=== PATIENT | female | born 1980 | race Caucasian/White ===

== ENCOUNTER 2021-07-15 15:53 | Inpatient (IN) | payer MEDICAID, OTHER ==
[~2021-07-15] VITALS: Ht 165.1 cm; Wt 78.0 kg
[2021-07-15] MEDS ORDERED: TRAZ-252 PO (16:19)
[2021-07-15] MEDS ORDERED: POLY510P31 PO (16:22)
[2021-07-15] MEDS ORDERED: HYDR-4527 PO (16:22)
[2021-07-15 20:03] LABS: BASOPHILS % (AUTO) 0.6 % (0.0-2.0); EOSINOPHILS % (AUTO) 1.4 % (1.0-6.0); HEMATOCRIT 42.3 % (41-53); HEMOGLOBIN 14.2 g/dL (13.5-17.5); LYMPHOCYTES # (AUTO) 2.2 K/uL (1.0-4.8); LYMPHOCYTES % (AUTO) 29.1 % (22.0-44.0); MEAN CORPUSCULAR HEMOGLOBIN 29.7 pg (26.0-34.0); MEAN CORPUSCULAR HGB CONC 33.6 G/dL (31.0-37.0); MEAN CORPUSCULAR VOLUME 88 fL (80-100); MONOCYTES # (AUTO) 0.5 K/uL (0.1-1.0); MONOCYTES % (AUTO) 6.7 % (2.0-9.0); NEUTROPHILS # (AUTO) 4.7 K/uL (1.8-7.7); NEUTROPHILS % (AUTO) 62.2 % (40.0-70.0); PLATELET COUNT (AUTO) 214 K/uL (150-450); RED BLOOD CELL COUNT(AUTO) 4.79 MIL/uL (4.50-5.90); RED CELL DISTRIBUTION WIDTH 13.2 % (11.5-14.5)
[2021-07-15 20:17] LABS: ANION GAP 9 mmol/L (8-16); CARBON DIOXIDE 27 mmol/L (22-29); CHLORIDE 103 mmol/L (98-107); CREATININE 0.59 mg/dL (0.60-1.30); GLUCOSE,RANDOM 87 mg/dL (70-110); POTASSIUM 3.5 mmol/L (3.5-5.1); SODIUM SERUM 139 mmol/L (136-145); UREA NITROGEN, BLOOD 13 mg/dL (7-18)
[2021-07-15 20:20] LABS: GLOMERULAR FILTR. RATE CALC > 60 mL/min (>60)
[2021-07-15 20:24] LABS: ALANINE AMINOTRANSFERASE 26 U/L (12-78); ALBUMIN 3.8 g/dL (3.4-5.0); ALKALINE PHOSPHATASE 73 U/L (46-116); ASPARTATE AMINOTRANSFERASE 17 U/L (15-37); BILIRUBIN,TOTAL 0.5 mg/dL (0.1-1.0); TOTAL PROTEIN, SERUM 7.6 g/dL (6.4-8.2)
[2021-07-15] MEDS ORDERED: LORazepam 2 MG TABLET PO PRN (20:30)
[2021-07-15] MEDS ORDERED: ZOLPIDEM TARTRATE 10 MG TABLET PO PRN (20:30)
[2021-07-15] MEDS ORDERED: OLANZapine 5 MG RAPDIS TABLET PO PRN (20:30)
[2021-07-15 20:58] LABS: HCG,QUANTITATIVE < 1 mIU/mL (0-6)
[2021-07-15] MEDS ORDERED: LORATADINE 10 MG TABLET PO ONE (23:45)
[2021-07-16 00:38] LABS: COVID AG,FIA SOURCE NASAL SWAB
[2021-07-16 09:05] LABS: APPEARANCE,URINE CLEAR (CLEAR); BILIRUBIN,URINE NEGATIVE (NEGATIVE); GLUCOSE, URINE (UA) NEGATIVE (NEGATIVE); LEUKOCYTE ESTERASE ,URINE NEGATIVE (NEGATIVE); NITRATE,URINE NEGATIVE (NEGATIVE); OCCULT BLOOD,URINE NEGATIVE (NEGATIVE); PH,URINE 6.5 (5.0-8.0); PROTEIN,URINE NEGATIVE (NEGATIVE); SPECIFIC GRAVITIY, URINE 1.009 (1.003-1.030); UROBILINOGEN,URINE <=1.0 mg/dL (<=1.0)
[2021-07-16 09:11] LABS: AMPHET/METH SCREEN,URINE NEGATIVE (NEGATIVE); BARBITURATE SCREEN, URINE NEGATIVE (NEGATIVE); BENZODIAZEPINES SCREEN,URINE NEGATIVE (NEGATIVE); CANNABINOID SCREEN,URINE NEGATIVE (NEGATIVE); COCAINE SCREEN,URINE NEGATIVE (NEGATIVE); METHADONE SCREEN, URINE NEGATIVE (NEGATIVE); OPIATE SCREEN,URINE NEGATIVE (NEGATIVE)
[2021-07-16 09:12] LABS: PHENCYCLIDINE SCREEN,URINE NEGATIVE (NEGATIVE)
[2021-07-16 11:31] VITALS: BP 131/91
[2021-07-16] MEDS ORDERED: GuaiFENesin/D-METHORPHAN [SUGAR-FREE] 200-20MG/10 ML SYRUP UDCUP PO PRN (14:15)
[2021-07-16] MEDS ORDERED: MAGNESIUM HYDROXIDE SUSPENSION 30 ML UDCUP PO PRN (14:15)
[2021-07-16] MEDS ORDERED: HydrOXYzine PAMOATE 50 MG CAPSULE PO PRN (14:15)
[2021-07-16] MEDS ORDERED: TUBERCULIN, PURIFIED PROTEIN DERIVATIVE 5 TU/0.1 ML SYRINGE ID ONE (14:15)
[2021-07-16] MEDS ORDERED: LOPERAMIDE HCL 2 MG CAPSULE PO PRN (14:15)
[2021-07-16] MEDS ORDERED: MAG HYDROX/AL HYDROX/SIMETH ES 30 ML SUSPENSION UDCUP PO PRN (14:15)
[2021-07-16] MEDS ORDERED: ACETAMINOPHEN 325 MG TABLET PO PRN (14:15)
[2021-07-16] MEDS ORDERED: HydrOXYzine PAMOATE 25 MG CAPSULE PO PRN (14:15)
[2021-07-16] MEDS ORDERED: PROMETHAZINE HCL 25 MG TABLET PO PRN (14:15)
[2021-07-16] MEDS ORDERED: ZOLPIDEM TARTRATE 5 MG TABLET PO PRN (14:30)
[2021-07-16 16:13] VITALS: BP 113/77
[2021-07-16] MEDS: THIAMINE 100 MG TABLET PO SCH (16:51)
[2021-07-16] MEDS ORDERED: AMITRIPTYLINE HCL 10 MG TABLET PO SCH (21:00)
[2021-07-16] MEDS ORDERED: MELATONIN 5 MG TABLET PO SCH (21:00)
[2021-07-16] MEDS ORDERED: TraZODone HCL 50 MG TABLET PO SCH (21:00)
[2021-07-17 00:37] VITALS: BP 110/71
[2021-07-17 07:58] LABS: CHOL/HDL RATIO 3.3 (3.9-5.7); FREE T4 (FREE THYROXINE) 0.93 ng/dL (0.76-1.46); THYROID STIMULATING HORMONE 1.06 uIU/mL (0.36-3.74)
[2021-07-17 08:19] VITALS: BP 123/79
[2021-07-17] MEDS: THIAMINE 100 MG TABLET PO SCH ×2 (08:23→16:03)
[2021-07-17 08:30] LABS: HEMOGLOBIN A1C 5.2 % (3.8-5.6)
[2021-07-17] MEDS ORDERED: FOLIC ACID 1 MG TABLET PO SCH (09:00)
[2021-07-17] MEDS ORDERED: FAMOTIDINE 20 MG TABLET PO SCH (09:00)
[2021-07-17] MEDS ORDERED: NALTREXONE HCL 50 MG TABLET PO SCH (09:00)
[2021-07-17] MEDS ORDERED: MULTIVITAMINS WITH MINERALS, THERAPEUTIC TABLET PO SCH (09:00)
[2021-07-17] MEDS ORDERED: OMEGA-3/DHA/EPA/FISH OIL 1,000 MG CAPSULE PO SCH (09:00)
[2021-07-17] MEDS ORDERED: MELA5TAB40 PO (13:19)
[2021-07-17] MEDS ORDERED: OMEG-108 PO (13:19)
[2021-07-17] MEDS ORDERED: AMIT-166 PO (13:19)
[2021-07-17] MEDS ORDERED: TRAZ-252 PO (13:19)
[2021-07-17] MEDS ORDERED: NALT50TA PO (13:19)
[2021-07-17] MEDS ORDERED: LORATADINE 10 MG TABLET PO ONE (13:30)
[2021-07-17 16:16] VITALS: BP 115/74
[2021-07-17] MEDS ORDERED: LORATADINE 10 MG TABLET PO SCH (17:00)
== END 2021-07-17 18:15 | disposition home health service (06) | DRG 753 ==
LOC: EDSEX 15:53 → EMS 15:53 → B3A 07-16 09:10
PROVIDERS: ADMIT Psychiatry & Neurology Psychiatry; ATTEND Psychiatry & Neurology Psychiatry
DX: F31.30 Bipolar disorder, current episode depressed, mild or moderate severity, unspecified (principal); R45.851 Suicidal ideations; Z20.822 Contact with and (suspected) exposure to COVID-19; F41.0 Panic disorder [episodic paroxysmal anxiety]; F44.9 Dissociative and conversion disorder, unspecified; R53.82 Chronic fatigue, unspecified; Z88.8 Allergy status to other drugs, medicaments and biological substances; Z55.9 Problems related to education and literacy, unspecified; Z59.9 Problem related to housing and economic circumstances, unspecified; Z63.9 Problem related to primary support group, unspecified; Z65.3 Problems related to other legal circumstances
CPT/HCPCS: 80053; 80061; 81003; 83036; 84439; 84443; 84702; 85025; 86592; 99285; G0480; Q9967